=== PATIENT | male | born 1965 | race Caucasian/White ===

== ENCOUNTER 2019-08-02 08:30 | Emergency (ER) | payer OTHER, SELFPAY ==
[2019-08-02] VITALS (8 sets, daily range): BP systolic 107–171; BP diastolic 55–90; PULSE 64–72; RESP 16–25; TEMP 36.9; O2SAT 95–100; BMI 29.7
[2019-08-02 09:40] LABS: Blood Urea Nitrogen 14 mg/dL (9-20); Carbon Dioxide 26 mmol/L (22-32); Chloride 101 mmol/L (98-107); Potassium 3.9 mmol/L (3.4-5.1); Sodium 136 mmol/L (137-145)
[2019-08-02 09:41] LABS: Alanine Aminotransferase 45 IU/L (<50); Albumin 4.5 g/dL (3.5-5.0); Albumin Globulin Ratio 1.5 (1.0-2.8); Alkaline Phosphatase 109 U/L (38-126); Aspartate Aminotransferase 36 IU/L (17-59); BUN Creatinine Ratio 8.6 (6-22); Bilirubin Total 0.9 mg/dL (0.2-1.3); Calcium 9.2 mg/dL (8.4-10.2); Estimated Glomerular Filt Rate 44.7 mL/min (>60); Globulin 3.1 g/dL (1.7-4.1); Glucose 98 mg/dL (70-100); HEMOLYSIS < 15 (0-50); Lipase 63 U/L (23-300); Total Protein 7.6 g/dL (6.3-8.2)
[2019-08-02 09:44] LABS: Add Manual Diff / Slide Review NO; Basophils Absolute Auto 200 /uL (0-100); Basophils Percent Auto 2.2 % (0-2); Eosinophils Absolute Auto 0 /uL (0-450); Eosinophils Percent Auto 0.3 % (2-4); Hematocrit 45.2 % (41-53); Hemoglobin 16.3 g/dL (13.5-17.5); Lymphocytes Absolute Auto 1000 /uL (1100-4500); Lymphocytes Percent Auto 13.4 % (25-40); Mean Corpuscular Hemoglobin 30.7 PG (26-34); Mean Corpuscular Volume 85.2 fL (80-100); Monocytes Absolute Auto 1000 /uL (0-900); Monocytes Percent Auto 12.9 % (3-14); Neutrophils Absolute Auto 5200 /uL (1500-7000); Neutrophils Percent Auto 71.2 % (50-75); Platelet Count 224 X10^3/uL (150-400); Red Blood Cell Count 5.31 X10^6/uL (4.5-5.9); Red Cell Distribution Width 12.8 % (11.6-14.8); White Blood Cell Count 7.4 X10^3/uL (4.5-11.0)
[2019-08-02 09:45] LABS: Mean Corpuscular HGB Conc 36.1 % (30-36)
--- NOTE | 2019-08-02 09:52 | ED_ITS ---
HPI - Abdominal Pain General Chief Complaint: Abdominal Pain Stated Complaint: Rt side pain Time Seen by Provider: 08/02/19 09:42 Source: patient and other (Girlfriend) History of Present Illness HPI narrative: Patient complains 3 weeks of constant right upper quadrant abdominal pain radiating to the right back. Nausea but no vomiting. Pain worse with eating. No bloody urine stools or emesis. No chest complaints. Related Data Previous Rx's Medication Instructions Recorded ibuprofen 600 mg PO Q6H PRN #20 tab 08/02/19 tamsulosin [Flomax] 0.4 mg PO BEDTIME #7 cap 08/02/19 Allergies Allergy/AdvReac Type Severity Reaction Status Date / Time Sulfa (Sulfonamide Allergy Verified 08/02/19 09:54 Antibiotics) Review of Systems Review of Systems Narrative: GENERAL: Denies chills, fatigue, malaise, fever, sweats. HEENT: Denies sinus pain, ear pain, sore throat, difficulty swallowing, dizziness. RESPIRATORY: Denies dyspnea, cough, wheezing, hemoptysis, sputum. CARDIOVASCULAR: Denies chest pain, palpitations, orthopnea, edema, GASTROINTESTINAL: Complains of abdominal pain nausea but no vomiting, no diarrhea no constipation : Denies dysuria, frequency, incontinence, hematuria, urinary retention. MUSCULOSKELETAL: denies weakness, joint pain, or bony pain SKIN: Denies rash, skin lesions, or other NEUROLOGIC: Denies weakness, headache, numbness, change in speech, confusion, seizures, incoordination. PSYCHIATRIC: No concerning psychosocial issues. ROS Unobtainable: All systems reviewed & are unremarkable except as noted in HPI and below Exam Narrative Exam Narrative: GENERAL: patient appears stated age. Well-nourished, well- developed patient, in no distress, not toxic HEAD: Atraumatic. Normocephalic. EYES: Pupils equal round and reactive. Extraocular motions intact. No scleral icterus. No injection or drainage. ENT: Nose without bleeding, purulent drainage. Throat without erythema, tonsillar hypertrophy or exudate. Airway patent. NECK: Trachea midline. Non tender CARDIOVASCULAR: Regular rate and rhythm without murmurs, gallops, or rubs. RESPIRATORY: Clear to auscultation. Breath sounds equal bilaterally. No wheezes, rales, or rhonchi. GASTROINTESTINAL: Abdomen is soft, tenderness reproducible right upper quadrant and right lower quadrant. Upper greater than lower. Positive Peterson sign. No peritoneal signs. Normal bowel sounds. EXTREMITIES: No edema or joint tenderness. BACK: Nontender without deformity or crepitance. No flank tenderness. NEURO: AOx3. SKIN: No rash or erythema of visible areas Initial Vital Signs Initial Vital Signs: Vital Signs Temperature 98.4 F 08/02/19 08:45 Pulse Rate 67 08/02/19 08:45 Respiratory Rate 17 08/02/19 08:45 Blood Pressure 171/88 H 08/02/19 08:45 Pulse Oximetry 98 08/02/19 08:45 Course Orders Ordered: ED Orders 08/02/19 09:22 Complete Blood Count AUTO DIFF Stat Comprehensive Metabolic Panel Stat Lipase Stat 08/02/19 09:50 CT abdomen pelvis w con Stat Discontinued Medications Sodium Chloride (Normal Saline 0.9%) 1,000 mls @ 150 mls/hr IV CONT RIAZ Last Admin: 08/02/19 10:22 Dose: Not Given Documented by: ANDRE Sodium Chloride (Normal Saline 0.9%) 1,000 mls @ 1,000 mls/hr IV BOLUS ONE Stop: 08/02/19 10:50 Last Infusion: 08/02/19 11:48 Dose: 0 mls/hr Documented by: Admin: 08/02/19 10:23 Dose: 1,000 mls/hr Documented by: ANDRE Ketorolac Tromethamine (Toradol) 15 mg IV NOW ONE Stop: 08/02/19 11:57 Last Admin: 08/02/19 12:10 Dose: 15 mg Documented by: MARY JO Morphine Sulfate (Morphine) 2 mg IV NOW ONE Stop: 08/02/19 09:51 Last Admin: 08/02/19 10:25 Dose: 2 mg Documented by: ANDRE Ondansetron HCl (Zofran) 4 mg IV NOW ONE Stop: 08/02/19 09:51 Last Admin: 08/02/19 10:23 Dose: 4 mg Documented by: ANDRE Tamsulosin HCl (Flomax) 0.4 mg PO NOW ONE Stop: 08/02/19 11:57 Last Admin: 08/02/19 12:11 Dose: 0.4 mg Documented by: MARY JO Reevaluation(s) Reevaluation #1: Patient is pain free. He desires discharge home. Informed patient we do not have Urology officially on-call. We do use a local urologist and he is willing to take phone calls after ER visits to see patients. Time: 13:45 Vital Signs Vital signs: Vital Signs - 8 hr 08/02/19 10:28 08/02/19 11:10 08/02/19 11:40 Pulse Rate 65 69 64 Respiratory Rate 20 22 16 Blood Pressure [Right Arm] 137/82 146/83 H 135/90 Pulse Oximetry 99 100 97 08/02/19 12:00 08/02/19 12:30 08/02/19 13:00 Pulse Rate 67 72 69 Respiratory Rate 25 H 21 20 Blood Pressure [Right Arm] 131/69 130/74 116/55 L Pulse Oximetry 100 97 08/02/19 13:30 Pulse Rate 71 Respiratory Rate 18 Blood Pressure [Right Arm] 107/60 Pulse Oximetry 95 MDM - Abdominal Pain Differential Diagnosis Differential diagnosis: Likely abdominal pain, acute appendicitis, calculus of kidney, diverticulitis and other (Cholecystitis) Lab Data Result diagrams: 08/02/19 09:22 08/02/19 09:22 Labs: Lab Results 08/02/19 08/02/19 Range/Units 09:22 09:22 WBC 7.4 (4.5-11.0) X10^3/uL RBC 5.31 (4.5-5.9) X10^6/uL Hgb 16.3 (13.5-17.5) g/dL Hct 45.2 (41-53) % MCV 85.2 (80-100) fL MCH 30.7 (26-34) PG MCHC 36.1 H (30-36) % RDW 12.8 (11.6-14.8) % Plt Count 224 (150-400) X10^3/uL Neut % (Auto) 71.2 (50-75) % Lymph % (Auto) 13.4 L (25-40) % Oliver % (Auto) 12.9 (3-14) % Eos % (Auto) 0.3 L (2-4) % Baso % (Auto) 2.2 H (0-2) % Neut # (Auto) 5200 (1414-1111) /uL Lymph # (Auto) 1000 L (5486-3935) /uL Oliver # (Auto) 1000 H (0-900) /uL Eos # (Auto) 0 (0-450) /uL Baso # (Auto) 200 H (0-100) /uL Sodium 136 L (137-145) mmol/L Potassium 3.9 (3.4-5.1) mmol/L Chloride 101 (98-107) mmol/L Carbon Dioxide 26 (22-32) mmol/L BUN 14 (9-20) mg/dL Creatinine 1.63 H (0.66-1.25) mg/dL Estimated GFR 44.7 L (>60) mL/min BUN/Creatinine Ratio 8.6 (6-22) Glucose 98 (70-100) mg/dL Calcium 9.2 (8.4-10.2) mg/dL Total Bilirubin 0.9 (0.2-1.3) mg/dL AST 36 (17-59) IU/L ALT 45 (<50) IU/L Alkaline Phosphatase 109 (38-126) U/L Total Protein 7.6 (6.3-8.2) g/dL Albumin 4.5 (3.5-5.0) g/dL Globulin 3.1 (1.7-4.1) g/dL Albumin/Globulin Ratio 1.5 (1.0-2.8) Lipase 63 (23-300) U/L Point of care testing: Urine Dip Bedside Urine Glucose Negative Bedside Urine Bilirubin - Negative Bedside Urine Ketone - Negative Urine Specific [place] 1.010 Bedside Urine Occult Blood - Negative Bedside Urine pH 6.0 Bedside Urine Protein - Negative Bedside Urine Urobilinogen - Negative Bedside Urine Nitrite - Negative Bedside Urine Leukocytes - Negative Esterase Imaging Data CT scan - abdomen/pelvis: Radiologist's Impression: [address] [address] [address] Scan Report Signed Patient: Ashley Harding#: [id number] : 1965Acct:[id number] Age/Sex: 53 / MDate of Service: 08/02/19 Loc: ED Accession Number: [id number] Procedure: CT abdomen pelvis w con Ordering Provider: Tin Akhtar MD PROCEDURE: CT ABDOMEN PELVIS W CON INDICATIONS: rt abd pain TECHNIQUE: After the administration of oral and intravenous contrast, 5 mm thick sections acquired from the diaphragms to the symphysis. 5 mm thick coronal and sagittal reformats were performed. For radiation dose reduction, the following was used: automated exposure control, adjustment of mA and/or kV according to patient size. COMPARISON: None. FINDINGS: Image quality: Diagnostic. ABDOMEN: Lung bases: Lung bases are clear. Heart size is normal. Solid organs: Liver is normal in size and is noted be hypodense when compared to the spleen. No focal liver lesions are evident. Gallbladder is not enlarged or inflamed. Biliary system is non-dilated. Pancreas enhances normally. Spleen is normal in size and enhancement. No adrenal nodules. There is differential enhancement of the bilateral kidneys with mild delayed right renal enhancement. Perinephric edema on the right is present. There is moderate right-sided hydronephrosis and hydroureter with mild periureteral edema. There is a 5 x 5 x 5 mm calculus evident within the distal right ureter near the vesicoureteral junction. No definite additional renal or ureteral calculi are present bilaterally. There is no left-sided hydronephrosis. Peritoneum and bowel: The stomach is unremarkable. The small bowel loops are nondilated. The appendix is not definitely identified. The colon appears to be within normal limits with the exception of minimal colonic diverticulosis. There is no free fluid, loculated fluid collection or free air. Nodes and vessels: No retroperitoneal or mesenteric adenopathy. Aorta and inferior vena cava are normal in caliber. Bones: No acute fracture or suspicious osseous lesions identified. There mild degenerative changes of the lower lumbar spine. PELVIS: Genitourinary: There is mild prominence of the wall of the urinary bladder, which probably is exaggerated by incomplete distention. No bladder calculi are appreciated. Coarse calcifications within the prostate are noted. Miscellaneous: No inguinal hernias or adenopathy. No free fluid or loculated fluid collection is evident. There is no free air. Bones: No suspicious bony lesions. No acute pelvic fractures are evident. Mild to moderate degenerative changes of the bilateral hips and pelvic joints are noted. IMPRESSION: 1. Moderate-sized (5 mm) at least partially obstructing distal right ureteral calculus with corresponding moderate hydronephrosis. 2. Probable hepatic steatosis. Dictated by: Srikanth Rubi M.D. on 08/02/2019 at 9:59 Approved by: Srikanth Rubi M.D. on 08/02/2019 at 10:04 [facility] Narrative Medical decision making narrative: Appropriate for discharge home. No fever. Normal white cell count. No signs infection in urine. No antibiotics indicated. Patient got more relief with the Toradol than morphine Discharge Plan Departure Patient Disposition: Home Clinical Impression: Calculus, ureteral Discharge Date/Time: 08/02/19 14:11 Instructions: DI for Kidney Stones Activity Restrictions/Additional Instructions: No driving today. Return if worse. Keep well hydrated. Call provided urology office in the morning for office recheck this week. Prescriptions: New tamsulosin [Flomax] 0.4 mg capsule 0.4 mg PO BEDTIME Qty: 7 RF: 0 ibuprofen 600 mg tablet 600 mg PO Q6H PRN (Reason: pain) Qty: 20 RF: 0 Referrals: Ritchie King MD [Physician] - (Call tomorrow Saturday for office recheck this week.)
[2019-08-02] MEDS: SODIUM CHLORIDE 0.9% 1,000 ML 1000 ML IV (10:23)
[2019-08-02] MEDS: ONDANSETRON 4 MG/2 ML INJ IV (10:23)
[2019-08-02] MEDS: MORPHINE 2 MG/ML INJ IV (10:25)
[2019-08-02] MEDS: KETOROLAC 60 MG/2 ML VIAL 15 MG IV (12:10)
[2019-08-02] MEDS: TAMSULOSIN 0.4 MG CAPSULE PO (12:11)
== END 2019-08-02 14:11 | disposition home or self-care (01) ==
PROVIDERS: Emergency Provider Emergency Medicine
DX: N20.1 Calculus of ureter (principal)
CPT/HCPCS: 36415; 74177; 80053; 81003; 83690; 85025; 96361; 96374; 96375; 99284; J1885; J2270; J2405; Q9967

== ENCOUNTER → 2019-08-17 11:34 | Outpatient (CLI) | payer OTHER, SELFPAY ==
--- NOTE | 2019-08-17 11:36 | DI.RAD.S_ITS ---
PROCEDURE: XR KUB INDICATIONS: History of left ureteral stone TECHNIQUE: One view of the abdomen acquired. COMPARISON: None. FINDINGS: Surgical changes and devices: None. Bowel: Bowel gas pattern is nonspecific. Large amount of stool is present.. Soft tissues: No suspicious abdominal calcifications. Visualized solid organ contours appear normal in size. Bones: No suspicious bony lesions. IMPRESSION: No abdominal calcifications identified Large amount of stool. No bowel obstruction. Dictated by: Rishabh Bonilla M.D. on 08/17/2019 at 13:16 Approved by: Rishabh Bonilla M.D. on 08/17/2019 at 13:18
== END ==
PROVIDERS: PCP Family Medicine; Referring Provider Specialist; Visit Provider Specialist
DX: N20.1 Calculus of ureter (principal)
CPT/HCPCS: 74018; 99213

== ENCOUNTER → 2019-08-25 13:52 | Outpatient (CLI) | payer OTHER, SELFPAY ==
[2019-08-26 19:43] LABS: COVID19 Sendout Not Detected (Not Detect)
== END ==
PROVIDERS: PCP Family Medicine; Visit Provider Physician Assistant
DX: Z01.812 Encounter for preprocedural laboratory examination (principal)
CPT/HCPCS: 87635

== ENCOUNTER 2019-08-28 06:34 | Day surgery (SDC) | payer OTHER, SELFPAY ==
[2019-08-28] VITALS (7 sets, daily range): BP systolic 121–142; BP diastolic 78–88; PULSE 72–85; RESP 11–16; TEMP 35.9–36.4; O2SAT 95–98; BMI 30.1
[2019-08-28] MEDS: LACTATED RINGERS 1,000 ML 42 ML IV ×2 (07:20→08:41)
[2019-08-28] MEDS: CEFAZOLIN 2 GM/100 ML FROZ.PIGGY IV (07:45)
--- NOTE | 2019-08-28 08:04 | SUR.OPER ---
Lithotomy on padded OR bed, head on pillow, arms secured on padded arm boards at <90 degrees abduction. Legs secured in padded yellow fins stirrups.
--- NOTE | 2019-08-28 09:05 | PM.PREOP ---
Pre-operative Note Interval Note History & Physical reviewed/Exam performed by Physician: Yes Changes to H&P: No H&P completed within 30 days and has changed as indicated here:: There are no changes to the history and physical examination scanned on file.
--- NOTE | 2019-08-28 09:08 | P.OP_ITS ---
Operative Date/Time/Diagnoses Date of procedure: 08/28/19 Time of procedure: 09:09 Pre-op diagnosis: Obstructing 6 mm right distal ureteral calculus Post-op diagnosis: same Procedure & Clinicians Procedure: 1. Cystoscopy and right ureteroscopic laser lithotripsy. Same procedure as scheduled: Yes Indications: Obstructing 6 mm right distal ureteral calculus. Surgeon: Ritchie King Click Yes if Unassisted: Yes Anesthesia Type: General Operative Notes Findings: Urethra-normal. External sphincter-coapted. Prostate-3.5-4 cm length with moderate trilobar hyperplasia. Bladder-trace to +1 trabeculation and normal left ureteral orifice. The right ureter ridge appears to have a mass effect indicating likely interval distal repositioned to the calculus. Indeed after dilation of the right ureteral vesicle junction the stone could be seen proximal to the meatus prior to ureteroscopy. Closure Type: not applicable Specimen(s): other (Stone fragments from right distal ureter.) Estimated Blood Loss (mL): 0 Blood products transfused: none Tourniquet time (min): 0 Procedure in detail: The patient was positioned supine and was administered general anesthesia. He was then repositioned semi lithotomy and the lower abdomen, genitalia, and groin were prepped and draped in sterile. The 22 [place]uvian panendoscope was then passed into the lower urinary tract with the findings as described above. A 0.35 guidewire was then advanced into the right collecting system under direct and fluoroscopic guidance. Over this a 15 [place] 4 cm length balloon dilating catheter was positioned across the right ureterovesical junction. The balloon was inflated to 18 atmospheres and held in position for 5 minutes. The balloon was then deflated and backloaded off the guidewire. The panendoscope was backloaded off the guidewire. The semi rigid ureteral scope was then introduced in lower urinary tract and advanced under direct vision into the right ureteral orifice where the stone was encountered. The patient and all operating room staff were fitted with laser safety eyewear. A 273 micron fiber was selected. Laser lithotripsy was then commenced with excellent subsequent fragmentation. The ureter was cleared of all fragments and clots without hydrostatic and mechanical agitation. The ureteral scope and the guidewire were then removed. The panendoscope was reintroduced in the lower urinary tract and the Ellick evacuator was used to collect numerous stone fragments line within the base of the bladder. These fragments were then labeled appropriately and submitted for routine crystallographic analysis. The bladder was then drained completely and all instrumentation removed a final time. Patient was then repositioned supine, awakened, and transferred to [facility] in stable condition. Complications: none Post-operative Condition: stable Disposition: PACU Plan for aftercare: Discharge home
[2019-08-28] MEDS: ONDANSETRON 4 MG/2 ML INJ IV (09:09)
[2019-09-15 12:55] LABS: Stone Analysis Source Right Ureter
[2019-09-15 12:57] LABS: Ca oxalate dihydrate 10
[2019-09-15 12:58] LABS: Ca oxalate monohydr 90
== END 2019-08-28 10:00 | disposition home or self-care (01) ==
PROVIDERS: PCP Family Medicine; Referring Provider Specialist; Visit Provider Specialist
PROC: (CPT 52353; principal; 2019-08-28 07:45)
DX: N20.1 Calculus of ureter (principal); N40.0 Benign prostatic hyperplasia without lower urinary tract symptoms
CPT/HCPCS: 52353; 76000; 82365; J0690; J1100; J2405; J2704; J3010

== ENCOUNTER → 2020-01-06 09:36 | Outpatient (CLI) | payer OTHER, SELFPAY ==
[2020-01-06 10:59] LABS: COVID19 -Nasal RAPID Negative (Negative)
== END ==
PROVIDERS: PCP Family Medicine; Visit Provider Surgery
DX: Z11.59 Encounter for screening for other viral diseases (principal)
CPT/HCPCS: 87635; C9803

== ENCOUNTER 2020-01-07 12:36 | Day surgery (SDC) | payer OTHER, SELFPAY ==
[2020-01-07 12:57] VITALS: BP 156/90; PULSE 67; RESP 15; TEMP 36.5; O2SAT 98; BMI 29.0
[2020-01-07] MEDS: LACTATED RINGERS 1,000 ML 200 ML IV (13:15)
--- NOTE | 2020-01-07 14:06 | PM.HP.1 ---
History of Present Illness History of Present Illness Date Patient Seen: 01/07/20 Time Patient Seen: 14:06 Chief complaint: SCREENING COLONOSCOPY Narrative: The patient presents for colorectal sreening. They have never had any previous examination for such. No personal or family history of colon cancer. On further history denies any recent gastrointestinal symptoms. No nausea, vomiting, abdominal pain, loss of appetite, unexplained weight loss, change in bowel habits, diarrhea, constipation, melena, hematochezia, or bright red blood per rectum. Patient History Medical History History of nephrolithiasis (Acute) Kidney stone (Acute 08/02/19) Migraine (Acute) Right thyroid nodule (Acute) Screening for hyperlipidemia (Acute) Screening for prostate cancer (Acute) Surgical History Anesthesia (Resolved) H/O wrist surgery (Resolved) Family & Social History Family History Father Hypertension Mother Hypertension Coronary artery disease Social History: household members significant other,family Tobacco & Substance use: Smoking Status Former smoker alcohol intake current alcohol intake frequency holiday/special occasion Substance Use Type marijuana Meds Home Medications and Allergies Home Medications Medication Instructions Recorded Confirmed Type ibuprofen 600 mg PO Q6H PRN #20 tab 08/02/19 01/07/20 Rx tamsulosin 0.4 mg capsule 0.4 mg PO BEDTIME #30 cap 08/11/19 01/07/20 Rx Allergies Allergy/AdvReac Type Severity Reaction Status Date / Time Sulfa (Sulfonamide Allergy Verified 01/07/20 12:56 Antibiotics) Review of Systems Review of Systems Narrative: A 10 point review of systems is negative except as noted in the HPI Exam Vital Signs (past 8 hours): - 01/07/20 12:57 Temperature 97.7 F Pulse Rate 67 Respiratory Rate 15 Blood Pressure 156/90 H Pulse Oximetry 98 Oxygen Delivery Method Room Air Narrative Exam Narrative: General-no acute distress, well nourished HEENT-moist mucous membranes, no scleral icterus Neck-supple, no lymphadenopathy Chest- non labored respirations, clear to auscultation bilaterally Cardiac-regular rate no peripheral edema Abdomen-soft, nontender, non distended Extremities-warm, well perfused Neurological-alert and oriented, no focal deficits Assessment & Plan Assessment & Plan narrative: The patient requires colorectal screening and colonoscopy is recommended. Technical details were discussed. Risks, benefits, alternatives explained. Risks including but not limited to myocardial infarction, aspiration, bleeding, pain, missed lesion, incomplete examination, need for further radiographic studies, colonic perforation, and need for major abdominal surgery were discussed. All questions were answered to their satisfaction, and they are in agreement with this plan.
[2020-01-07] MEDS: MIDAZOLAM 5 MG/5 ML VIAL IV (14:31)
[2020-01-07] MEDS: fentaNYL 250 MCG/5 ML INJ IV (14:32)
--- NOTE | 2020-01-07 14:43 | PM.OP.ENDO ---
Operative Date/Time/Diagnoses Date of procedure: 01/07/20 Time of procedure: 14:43 Pre-op diagnosis: Screening colonoscopy Post-op diagnosis: other (Normal colonoscopy) Procedure & Clinicians Study performed: Colonoscopy Same procedure as scheduled: Yes Indications: 54-year-old man no prior colonoscopy here for routine screening Surgeon: Fabricio Thompson Procedure Notes SCOAP/Timeout: Performed Procedure in detail: Medications: Conscious sedation using 7mg IV midazolam and 250mcg IV of fentanyl The history and physical was performed/updated and the patient is ASA class is 1. The procedure was discussed in detail with the patient. Potential risks complications including infection, bleeding, missed diagnosis, perforation, need for surgery, and were explained. Their questions were answered and informed consent was obtained. Patient was brought to the procedure room and placed standard monitoring equipment. The patient's vital signs were monitored continuously throughout the entire procedure. Prior to starting time-out was performed. The ablation patient was placed in the left lateral recumbent position. Procedural sedation was administered. Examination began with a thorough inspection of the perianal area there was no evidence of fissures, fistulae, external hemorrhoids or cutaneous malignancy. The colonoscopy scope was then placed into the anal canal and was advanced to the cecum, which was identified by the ileocecal valve, the appendiceal orifice and the confluence of the taenia. The scope was then slowly withdrawn examining colon thoroughly in all directions, irrigating it of any residual stool. No masses or polyps The patient tolerated the procedure well. They will be discharged once criteria are met. The prep was of good/excellent quality. The withdrawl time was 6 minutes. The sedation time was 25 minutes. Specimen(s): none sent Complications: none Impression: Normal colonoscopy Post-procedure Recommendations: Colonscopy in 10 years Disposition: same day surgery
[2020-01-07 14:45] VITALS: BP 129/76; PULSE 63; RESP 12; TEMP 36.6; O2SAT 95
[2020-01-07 14:50] VITALS: BP 120/80; PULSE 62; RESP 14; O2SAT 95
[2020-01-07 14:55] VITALS: BP 117/78; PULSE 66; RESP 13; O2SAT 96
[2020-01-07 15:05] VITALS: BP 132/82; PULSE 69; RESP 16; TEMP 36.4; O2SAT 96
[2020-01-07 15:16] VITALS: BP 127/86; PULSE 66; RESP 16; TEMP 37.1; O2SAT 96
== END 2020-01-07 15:20 | disposition home or self-care (01) ==
PROVIDERS: PCP Family Medicine; Referring Provider Family Medicine; Visit Provider Surgery
PROC: 0DJD8ZZ Inspection of Lower Intestinal Tract, Via Natural or Artificial Opening Endoscopic (ICD-10-PCS; CPT 45378; principal; 2020-01-07 13:45)
DX: Z12.11 Encounter for screening for malignant neoplasm of colon (principal)
CPT/HCPCS: 45378; J2250; J3010

== ENCOUNTER 2024-04-26 15:33 | Emergency (ER) | payer OTHER, SELFPAY ==
[2024-04-26] VITALS (45 sets, daily range): BP systolic 110–163; BP diastolic 74–96; PULSE 47–69; RESP 12–24; TEMP 36.7; O2SAT 95–98; BMI 30.7
--- NOTE | 2024-04-26 15:46 | DI.RAD.S_ITS ---
PROCEDURE: XR CHEST 1V INDICATIONS: chest pain TECHNIQUE: One view of the chest was acquired. COMPARISON: None. FINDINGS: Surgical changes and devices: None. Lungs and pleura: Lungs are clear. No pleural effusions or pneumothorax. Mediastinum: Mediastinal contours appear normal. Heart size is normal. Bones and chest wall: No suspicious bony lesions. Overlying soft tissues appear unremarkable. IMPRESSION: No acute cardiopulmonary abnormality is seen. Approved by: Jeremy Menendez M.D. on 04/26/2024 at 15:39
--- NOTE | 2024-04-26 15:55 | EKG_ITS ---
[address] [address] Test Date: 2024-04-26 Pat Name: Shay Harding Department: Room: Gender: Male [employer] Cook: : 1965 Requested By: Order Number: [id number] Reading MD: César Barillas Measurements Intervals [place] Rate: 59 P: 13 PA: 162 QRS: -25 QRSD: 102 T: 18 QT: 410 QTc: 405 Interpretive Statements Sinus bradycardia Electronically Signed On 04-26-2024 18:58:18 PST by César Barillas
[2024-04-26 16:19] LABS: Prothrombin Time 10.8 SECONDS (9.4-12.5)
[2024-04-26 16:22] LABS: PTT Partial Thromboplastin Tim 38 SECONDS (25.1-36.5)
[2024-04-26 16:24] LABS: Alanine Aminotransferase 52 IU/L (<50); Albumin 4.4 g/dL (3.5-5.0); Albumin Globulin Ratio 1.5 (1.0-2.8); Alkaline Phosphatase 114 U/L (38-126); Aspartate Aminotransferase 46 IU/L (17-59); BUN Creatinine Ratio 14.1 (6-22); Bilirubin Total 0.8 mg/dL (0.2-1.3); Blood Urea Nitrogen 13 mg/dL (9-20); Calcium 8.7 mg/dL (8.4-10.2); Carbon Dioxide 24 mmol/L (22-32); Chloride 102 mmol/L (98-107); Creatine Kinase 115 U/L (55-170); Estimated Glomerular Filt Rate > 60 mL/min (>60); Globulin 2.9 g/dL (1.7-4.1); Glucose 94 mg/dL (70-100); HEMOLYSIS 22 (0-50); Lipase 61 U/L (23-300); Magnesium 1.9 mg/dL (1.6-2.3); Potassium 3.8 mmol/L (3.4-5.1); Sodium 136 mmol/L (137-145); Total Protein 7.3 g/dL (6.3-8.2)
[2024-04-26 16:27] LABS: Add Manual Diff / Slide Review NO; Basophils Absolute Auto 100 /uL (0-100); Basophils Percent Auto 0.9 % (0-2); Eosinophils Absolute Auto 200 /uL (0-450); Eosinophils Percent Auto 2.9 % (2-4); Hematocrit 46.4 % (41-53); Lymphocytes Absolute Auto 2100 /uL (1100-4500); Lymphocytes Percent Auto 30.8 % (25-40); Mean Corpuscular HGB Conc 34.6 % (30-36); Mean Corpuscular Volume 86.6 fL (80-100); Monocytes Absolute Auto 900 /uL (0-900); Monocytes Percent Auto 12.9 % (3-14); Neutrophils Absolute Auto 3600 /uL (1500-7000); Neutrophils Percent Auto 52.5 % (50-75); Platelet Count 271 X10^3/uL (150-400); Red Blood Cell Count 5.35 X10^6/uL (4.5-5.9); Red Cell Distribution Width 12.9 % (11.6-14.8); White Blood Cell Count 6.9 X10^3/uL (4.5-11.0)
[2024-04-26 16:35] LABS: NT-proBNP (BNP-Adult 18+) < 20 pg/mL (<125); Troponin I < 0.012 ng/mL (0.01-0.034)
[2024-04-26] MEDS: ASPIRIN 81 MG CHEW TAB 324 MG PO (17:22)
--- NOTE | 2024-04-26 17:26 | PC.NURSE ---
This RN gave only 243mg aspirin due to patient taking 81mg at home this morning. Dr. Mora informed.
[2024-04-26] MEDS: NITROGLYCERIN 0.4 MG SL TAB SL (17:31)
--- NOTE | 2024-04-26 18:05 | EKG_ITS ---
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
[2024-04-26 18:27] LABS: Troponin I < 0.012 ng/mL (0.01-0.034)
--- NOTE | 2024-04-26 21:05 | ED_ITS ---
HPI - Chest Pain General Chief Complaint: Chest Pain Stated Complaint: CHEST PAIN, SOB Time Seen by Provider: 04/26/24 17:23 Source: patient Mode of arrival: Ambulatory Limitations: no limitations History of Present Illness HPI narrative: 58-year-old male without any significant past medical history presents for chest pain, states this has been ongoing persistent for the past several days states that he feels like it is worse whenever he does in excessive amount of exertion, he states that it is intermittent nature does not happen every time he exerts himself. He denies any headache visual disturbances fever chills nausea vomiting abdominal pain or any other GI/ symptoms at this time. Related Data Previous Rx's Medication Instructions Recorded ibuprofen 600 mg tablet 600 mg PO Q6H PRN pain #20 tabs 08/02/19 tamsulosin 0.4 mg capsule (Flomax) 0.4 mg PO BEDTIME #30 caps 08/11/19 Allergies Allergy/AdvReac Type Severity Reaction Status Date / Time Sulfa (Sulfonamide Allergy Verified 01/07/20 12:56 Antibiotics) Patient History Medical History (Updated 04/26/24 @ 21:07 by César Silva DO) History of nephrolithiasis Right thyroid nodule Screening for hyperlipidemia Screening for prostate cancer Kidney stone (08/02/19) Migraine Surgical History Anesthesia H/O wrist surgery Family History Father Hypertension Mother Hypertension Coronary artery disease Social History household members: significant other and family Smoking Status: Former smoker alcohol intake: current substance use type: marijuana Smoking Status: Former smoker alcohol intake frequency: holidays/special occasions only Exam Initial Vital Signs Initial Vital Signs: Vital Signs Temperature 98.1 F 04/26/24 15:41 Pulse Rate 69 04/26/24 15:41 Respiratory Rate 16 04/26/24 15:41 Blood Pressure 163/96 H 04/26/24 15:41 Pulse Oximetry 98 04/26/24 15:41 Oxygen Delivery Method Room Air 04/26/24 15:41 Course Orders Ordered: ED Orders 04/26/24 15:46 XR chest 1V Stat EKG-12 Lead Stat 04/26/24 16:00 Complete Blood Count AUTO DIFF Stat Comprehensive Metabolic Panel Stat Lipase Stat Magnesium Stat NT-proBNP (BNP-Adult 18+) Stat PTT Partial Thromboplastin Maurice Stat Prothrombin Time INR Stat Troponin & CK Cardiac Panel Stat 04/26/24 17:55 Trop I [Troponin I] Stat 04/26/24 17:56 EKG-12 Lead Stat Discontinued Medications Aspirin (Aspirin 81 Mg Chew Tab) 324 mg PO NOW ONE Stop: 04/26/24 15:47 Last Admin: 04/26/24 17:22 Dose: 243 mg Documented By: RB Nitroglycerin (Nitroglycerin 0.4 Mg Sl Tab) 0.4 mg SL NOW ONE Stop: 04/26/24 17:28 Last Admin: 04/26/24 17:31 Dose: 0.4 mg Documented By: RB Vital Signs Vital signs: Vital Signs - 8 hr 04/26/24 15:41 04/26/24 17:12 04/26/24 17:13 Temperature 98.1 F Pulse Rate 69 57 L 56 L Respiratory Rate 16 19 17 Blood Pressure 163/96 H Pulse Oximetry 98 97 97 Oxygen Delivery Method Room Air 04/26/24 17:13 04/26/24 17:15 04/26/24 17:15 Temperature Pulse Rate 54 L Respiratory Rate 15 Blood Pressure 144/89 H 131/86 Pulse Oximetry 97 Oxygen Delivery Method 04/26/24 17:30 04/26/24 17:30 04/26/24 17:31 Temperature Pulse Rate 54 L 62 Respiratory Rate 14 Blood Pressure 135/90 135/90 Pulse Oximetry 98 Oxygen Delivery Method 04/26/24 17:34 04/26/24 17:34 04/26/24 17:35 Temperature Pulse Rate 60 65 Respiratory Rate 16 24 Blood Pressure 131/79 Pulse Oximetry 97 97 Oxygen Delivery Method 04/26/24 17:35 04/26/24 17:40 04/26/24 17:40 Temperature Pulse Rate 56 L Respiratory Rate 18 Blood Pressure 131/83 132/79 Pulse Oximetry 95 Oxygen Delivery Method 04/26/24 17:45 04/26/24 17:45 04/26/24 17:50 Temperature Pulse Rate 56 L 57 L Respiratory Rate 14 16 Blood Pressure 125/81 Pulse Oximetry 96 96 Oxygen Delivery Method 04/26/24 17:50 04/26/24 17:55 04/26/24 17:55 Temperature Pulse Rate 53 L Respiratory Rate 20 Blood Pressure 121/81 121/76 Pulse Oximetry 96 Oxygen Delivery Method 04/26/24 18:00 04/26/24 18:00 04/26/24 18:05 Temperature Pulse Rate 54 L 59 L Respiratory Rate 15 15 Blood Pressure 131/79 Pulse Oximetry 98 97 Oxygen Delivery Method 04/26/24 18:05 04/26/24 18:10 04/26/24 18:10 Temperature Pulse Rate 55 L Respiratory Rate 15 Blood Pressure 124/74 120/84 Pulse Oximetry 97 Oxygen Delivery Method 04/26/24 18:15 04/26/24 18:15 04/26/24 18:20 Temperature Pulse Rate 55 L 55 L Respiratory Rate 16 18 Blood Pressure 116/78 Pulse Oximetry 97 97 Oxygen Delivery Method 04/26/24 18:20 04/26/24 18:25 04/26/24 18:25 Temperature Pulse Rate 59 L Respiratory Rate 17 Blood Pressure 118/77 114/76 Pulse Oximetry 97 Oxygen Delivery Method 04/26/24 18:30 04/26/24 18:30 04/26/24 18:35 Temperature Pulse Rate 56 L Respiratory Rate 18 Blood Pressure 114/76 115/76 Pulse Oximetry 97 Oxygen Delivery Method 04/26/24 18:35 04/26/24 18:40 04/26/24 18:40 Temperature Pulse Rate 54 L 56 L Respiratory Rate 17 16 Blood Pressure 115/78 Pulse Oximetry 97 97 Oxygen Delivery Method 04/26/24 18:45 04/26/24 18:45 04/26/24 18:50 Temperature Pulse Rate 53 L Respiratory Rate 15 Blood Pressure 114/80 114/80 Pulse Oximetry 97 Oxygen Delivery Method 04/26/24 18:50 04/26/24 18:55 04/26/24 18:55 Temperature Pulse Rate 55 L 55 L Respiratory Rate 14 15 Blood Pressure 117/87 Pulse Oximetry 97 97 Oxygen Delivery Method 04/26/24 19:00 04/26/24 19:00 04/26/24 19:05 Temperature Pulse Rate 55 L 56 L Respiratory Rate 18 16 Blood Pressure 117/84 Pulse Oximetry 97 97 Oxygen Delivery Method 04/26/24 19:05 04/26/24 19:10 04/26/24 19:10 Temperature Pulse Rate 52 L Respiratory Rate 14 Blood Pressure 110/80 116/86 Pulse Oximetry 98 Oxygen Delivery Method 04/26/24 19:15 04/26/24 19:15 04/26/24 19:20 Temperature Pulse Rate 53 L 53 L Respiratory Rate 14 19 Blood Pressure 119/82 Pulse Oximetry 97 97 Oxygen Delivery Method 04/26/24 19:20 04/26/24 19:25 04/26/24 19:25 Temperature Pulse Rate 54 L Respiratory Rate 14 Blood Pressure 126/87 126/83 Pulse Oximetry 97 Oxygen Delivery Method 04/26/24 19:30 04/26/24 19:30 04/26/24 19:35 Temperature Pulse Rate 52 L 52 L Respiratory Rate 14 14 Blood Pressure 123/83 Pulse Oximetry 97 97 Oxygen Delivery Method 04/26/24 19:35 04/26/24 19:40 04/26/24 19:40 Temperature Pulse Rate 52 L Respiratory Rate 14 Blood Pressure 128/85 126/86 Pulse Oximetry 97 Oxygen Delivery Method 04/26/24 19:45 04/26/24 19:45 04/26/24 19:51 Temperature Pulse Rate 52 L 53 L Respiratory Rate 14 15 Blood Pressure 125/82 Pulse Oximetry 97 97 Oxygen Delivery Method 04/26/24 19:51 04/26/24 19:56 04/26/24 19:56 Temperature Pulse Rate 50 L Respiratory Rate 16 Blood Pressure 134/79 116/82 Pulse Oximetry 98 Oxygen Delivery Method 04/26/24 20:00 04/26/24 20:00 04/26/24 20:05 Temperature Pulse Rate 52 L 51 L Respiratory Rate 16 16 Blood Pressure 125/88 Pulse Oximetry 97 97 Oxygen Delivery Method 04/26/24 20:05 04/26/24 20:10 04/26/24 20:10 Temperature Pulse Rate 52 L Respiratory Rate 14 Blood Pressure 127/86 125/79 Pulse Oximetry 98 Oxygen Delivery Method 04/26/24 20:15 04/26/24 20:15 04/26/24 20:20 Temperature Pulse Rate 49 L 51 L Respiratory Rate 12 12 Blood Pressure 129/85 Pulse Oximetry 97 97 Oxygen Delivery Method 04/26/24 20:20 Temperature Pulse Rate Respiratory Rate Blood Pressure 119/82 Pulse Oximetry Oxygen Delivery Method MDM - Chest Pain Lab Data 04/26/24 16:00 04/26/24 16:00 Labs: Lab Results 04/26/24 04/26/24 Range/Units 16:00 17:55 WBC 6.9 (4.5-11.0) X10^3/uL RBC 5.35 (4.5-5.9) X10^6/uL Hgb 16.0 (13.5-17.5) g/dL Hct 46.4 (41-53) % MCV 86.6 (80-100) fL MCH 30.0 (26-34) PG MCHC 34.6 (30-36) % RDW 12.9 (11.6-14.8) % Plt Count 271 (150-400) X10^3/uL Neut % (Auto) 52.5 (50-75) % Lymph % (Auto) 30.8 (25-40) % [place] % (Auto) 12.9 (3-14) % Eos % (Auto) 2.9 (2-4) % Baso % (Auto) 0.9 (0-2) % Neut # (Auto) 3600 (6020-7098) /uL Lymph # (Auto) 2100 (2711-1027) /uL [place] # (Auto) 900 (0-900) /uL Eos # (Auto) 200 (0-450) /uL Baso # (Auto) 100 (0-100) /uL PT 10.8 (9.4-12.5) SECONDS INR 1.0 (0.9-1.3) APTT 38 H (25.1-36.5) SECONDS Sodium 136 L (137-145) mmol/L Potassium 3.8 (3.4-5.1) mmol/L Chloride 102 (98-107) mmol/L Carbon Dioxide 24 (22-32) mmol/L BUN 13 (9-20) mg/dL Creatinine 0.92 (0.66-1.25) mg/dL Estimated GFR > 60 (>60) mL/min BUN/Creatinine Ratio 14.1 (6-22) Glucose 94 (70-100) mg/dL Calcium 8.7 (8.4-10.2) mg/dL Magnesium 1.9 (1.6-2.3) mg/dL Total Bilirubin 0.8 (0.2-1.3) mg/dL AST 46 (17-59) IU/L ALT 52 H (<50) IU/L Alkaline Phosphatase 114 (38-126) U/L Total Creatine Kinase 115 (55-170) U/L Troponin I < 0.012 < 0.012 (0.01-0.034) ng/mL NT-Pro-B Natriuret Pep < 20 (<125) pg/mL Total Protein 7.3 (6.3-8.2) g/dL Albumin 4.4 (3.5-5.0) g/dL Globulin 2.9 (1.7-4.1) g/dL Albumin/Globulin Ratio 1.5 (1.0-2.8) Lipase 61 (23-300) U/L MDM Narrative Medical decision making narrative: Heart score 1 Discharge Plan Departure Patient Disposition: Home Clinical Impression: Chest pain Instructions: DI for Chest Pain Activity Restrictions/Additional Instructions: Please start taking a baby aspirin a day Please follow up with Cardiology and your primary care doctor Please read the discharge instructions sheet carefully and bring all papers to all doctor follow-up visits, as it may contain information that your doctor may want to see. Disease processes change and evolve, if your symptoms worsen or if you develop any new symptoms that are concerning to you please return for evaluation. Your evaluation today does not show any evidence of any life- threatening/serious illnesses requiring admission to the hospital or surgery. Please follow-up with your doctor for re-evaluation in approximately 1 day. Seek immediate medical attention for any worrisome symptoms. *If you do not have a primary care provider please contact the [facility] Resource line at [phone]. They will ask some questions about your medical history and help get you set up with a doctor in the community. Prescriptions: No Action tamsulosin [Flomax] 0.4 mg capsule 0.4 mg PO BEDTIME Qty: 30 0RF Patient Comments: pt reports no longer takes ibuprofen 600 mg tablet 600 mg PO Q6H PRN (Reason: pain) Qty: 20 0RF Referrals: Mandeep Ritchie MD [Physician] - Navarro Wilson DO [Primary Care Provider] - Stand Alone Forms: Patient Portal/API/Survey
== END 2024-04-26 21:11 | disposition home or self-care (01) ==
PROVIDERS: Emergency Medicine; Emergency Provider Student in an Organized Health Care Education/Training Program; PCP Family Medicine
DX: R07.9 Chest pain, unspecified (principal)
CPT/HCPCS: 36415; 71045; 80053; 82550; 83690; 83735; 83880; 84484; 85025; 85610; 85730; 93005; 99284

== ENCOUNTER → 2024-05-20 07:45 | Outpatient (CLI) | payer OTHER, SELFPAY | PROVIDERS: PCP Family Medicine; Referring Provider Family Medicine; Visit Provider Family Medicine | DX: R00.2 Palpitations (principal); R07.9 Chest pain, unspecified | CPT/HCPCS: 93242; 93244 ==